=== PATIENT | male | born 1975 | race Caucasian/White ===

== ENCOUNTER → 2018-02-11 09:21 | Outpatient (CLI) | payer OTHER, SELFPAY ==
[2018-02-11 09:58] LABS: Add Manual Diff / Slide Review NO; Basophils Percent Auto 0.7 % (0-2); Eosinophils Percent Auto 6.1 % (2-4); Hematocrit 46.6 % (41-53); Hemoglobin 16.2 g/dL (13.5-17.5); Lymphocytes Percent Auto 30.1 % (25-40); Mean Corpuscular HGB Conc 34.7 % (30-36); Mean Corpuscular Hemoglobin 29.6 PG (26-34); Mean Corpuscular Volume 85.1 fL (80-100); Monocytes Percent Auto 8.7 % (3-14); Neutrophils Absolute Auto 4100 /uL (3000-5900); Neutrophils Percent Auto 54.4 % (50-75); Platelet Count 276 X10^3/uL (150-400); Red Blood Cell Count 5.47 X10^6/uL (4.5-5.9); Red Cell Distribution Width 13.6 % (11.6-14.8); White Blood Cell Count 7.6 X10^3/uL (4.5-11.0)
[2018-02-11 10:54] LABS: Alanine Aminotransferase 41 IU/L (21-72); Albumin 4.4 g/dL (3.5-5.0); Albumin Globulin Ratio 1.5 (1.0-2.8); Alkaline Phosphatase 44 U/L (38-126); Aspartate Aminotransferase 32 IU/L (17-59); BUN Creatinine Ratio 16.7 (6-22); Bilirubin Total 0.6 mg/dL (0.2-1.3); Blood Urea Nitrogen 15 mg/dL (9-20); Calcium 9.2 mg/dL (8.4-10.2); Carbon Dioxide 30 mmol/L (22-32); Chloride 105 mmol/L (98-107); Cholesterol 140 mg/dL (140-199); Estimated Glomerular Filt Rate > 60.0 mL/min (>60); Glucose 106 mg/dL (70-100); HDL Cholesterol 38 mg/dL (40-60); HEMOLYSIS < 15 (0-50); LDL Cholesterol Calculated 81 mg/dL (<100); Potassium 4.7 mmol/L (3.4-5.1); Sodium 146 mmol/L (137-145); Total Protein 7.4 g/dL (6.3-8.2); Triglycerides 103 mg/dL (35-150)
[2018-02-11 11:30] LABS: Appearance Urine UA CLEAR; Bilirubin Urine UA NEGATIVE (NEGATIVE); Color Urine UA YELLOW; Glucose Urine UA NEGATIVE (Normal); Ketones Urine UA NEGATIVE (NEGATIVE); Leukocyte Esterase Urine UA NEGATIVE (NEGATIVE); Nitrite Urine UA Negative (Negative); Occult Blood Urine UA 1+ (Negative); Protein Urine UA NEGATIVE (Negative); Urobilinogen Urine UA 0.2 E.U./dL (0.2); pH Urine UA 6.5 (4.5-8.0)
== END ==
PROVIDERS: Visit Provider Family Medicine
DX: Z00.00 Encounter for general adult medical examination without abnormal findings (principal)
CPT/HCPCS: 36415; 80053; 80061; 81003; 84443; 85025

== ENCOUNTER → 2018-03-17 12:42 | Outpatient (CLI) | payer OTHER, SELFPAY ==
--- NOTE | 2018-03-17 12:44 | DI.CT.S_ITS ---
PROCEDURE: CT ABDOMEN PELVIS WO CON INDICATIONS: diffuse abdominal pain and bleeding from umbilicus TECHNIQUE: Noncontrast 5 mm thick sections acquired from the diaphragms to the symphysis. 5 mm coronal and sagittal reformats were then performed. For radiation dose reduction, the following was used: automated exposure control, adjustment of mA and/or kV according to patient size. COMPARISON: None. FINDINGS: Image quality: Excellent. ABDOMEN: Lung bases: Lung bases are clear. Heart size is normal. Small hiatal hernia. Solid organs: Liver is normal in size. Gallbladder is normal. Pancreas is normal in contours. Spleen is normal in size. No adrenal nodules. Kidneys are normal in size, without hydronephrosis or nephrolithiasis. Peritoneum and bowel: Unenhanced bowel loops demonstrate normal wall thickness and caliber. Scattered colonic diverticula. No evidence for acute diverticulitis. No free fluid or air. Nodes and vessels: No retroperitoneal or mesenteric adenopathy by size criteria. Aorta and inferior vena cava are normal in caliber. Miscellaneous: Tiny fat-containing umbilical hernia is noted. PELVIS: Genitourinary: Bladder wall thickness is normal. Miscellaneous: No inguinal hernias or adenopathy. Bones: No suspicious bony lesions. No vertebral body compression fractures. IMPRESSION: 1. A small fat containing umbilical hernia is present. No CT findings to explain periumbilical bleeding. 2. Diverticulosis without active diverticulitis. 3. Small hiatal hernia. Dictated by: Jenny Leggett M.D. on 03/17/2018 at 14:46 Approved by: Jenny Leggett M.D. on 03/17/2018 at 14:52
== END ==
PROVIDERS: PCP Family Medicine; Visit Provider Physician Assistant
DX: R10.84 Generalized abdominal pain (principal); K42.9 Umbilical hernia without obstruction or gangrene; K44.9 Diaphragmatic hernia without obstruction or gangrene; R19.8 Other specified symptoms and signs involving the digestive system and abdomen; K57.90 Diverticulosis of intestine, part unspecified, without perforation or abscess without bleeding
CPT/HCPCS: 74176

== ENCOUNTER 2019-01-02 13:28 | Emergency (ER) | payer OTHER, SELFPAY ==
[2019-01-02 13:30] VITALS: BP 139/98; PULSE 82; RESP 18; TEMP 37; O2SAT 99; BMI 33.2
--- NOTE | 2019-01-02 13:40 | DI.RAD.S_ITS ---
PROCEDURE: XR CHEST 1V INDICATIONS: chest pain TECHNIQUE: One view of the chest was acquired. COMPARISON: None. FINDINGS: Surgical changes and devices: None. Lungs and pleura: Lungs are clear. No pleural effusions or pneumothorax. Mediastinum: Mediastinal contours appear normal. Heart size is normal. Bones and chest wall: No suspicious bony lesions. Overlying soft tissues appear unremarkable. IMPRESSION: Normal for age, source of current chest pain symptoms is not seen. Dictated by: Rex Sanderson M.D. on 01/02/2019 at 14:08 Approved by: Rex Sanderson M.D. on 01/02/2019 at 14:08
[2019-01-02 14:04] LABS: Add Manual Diff / Slide Review NO; Basophils Absolute Auto 100 /uL (0-100); Eosinophils Absolute Auto 300 /uL (0-450); Hemoglobin 16.2 g/dL (13.5-17.5); Lymphocytes Absolute Auto 2900 /uL (1100-4500); Lymphocytes Percent Auto 34.4 % (25-40); Mean Corpuscular HGB Conc 35.3 % (30-36); Mean Corpuscular Hemoglobin 29.5 PG (26-34); Mean Corpuscular Volume 83.6 fL (80-100); Monocytes Absolute Auto 1000 /uL (0-900); Monocytes Percent Auto 11.6 % (3-14); Neutrophils Absolute Auto 4200 /uL (1500-7000); Platelet Count 273 X10^3/uL (150-400); Red Cell Distribution Width 13.3 % (11.6-14.8); White Blood Cell Count 8.6 X10^3/uL (4.5-11.0)
[2019-01-02 14:11] LABS: Prothrombin Time 11.4 SECONDS (10.1-12.7)
[2019-01-02 14:14] LABS: PTT Partial Thromboplastin Tim 32 SECONDS (26.4-36.2)
[2019-01-02 14:15] LABS: Alanine Aminotransferase 42 IU/L (21-72); Albumin 4.4 g/dL (3.5-5.0); Albumin Globulin Ratio 1.4 (1.0-2.8); Alkaline Phosphatase 51 U/L (38-126); Aspartate Aminotransferase 34 IU/L (17-59); BUN Creatinine Ratio 22.5 (6-22); Bilirubin Total 0.4 mg/dL (0.2-1.3); Blood Urea Nitrogen 18 mg/dL (9-20); Calcium 9.5 mg/dL (8.4-10.2); Carbon Dioxide 27 mmol/L (22-32); Chloride 102 mmol/L (98-107); Creatine Kinase 135 U/L (55-170); Estimated Glomerular Filt Rate > 60.0 mL/min (>60); Globulin 3.2 g/dL (1.7-4.1); Glucose 86 mg/dL (70-100); HEMOLYSIS 19 (0-50); Lipase 101 U/L (23-300); Potassium 4.2 mmol/L (3.4-5.1); Sodium 139 mmol/L (137-145); Total Protein 7.6 g/dL (6.3-8.2)
[2019-01-02 14:26] LABS: Troponin I < 0.012 ng/mL (0.01-0.034)
[2019-01-02 14:30] LABS: CKMB % Relative Index 0.7 % (1.5-5.0); Creatine Kinase MB 0.89 ng/mL (<2.37)
[2019-01-02 14:51] LABS: Thyroid Stimulating Hormone 2.07 uIU/mL (0.47-4.68)
--- NOTE | 2019-01-02 15:25 | ED_ITS ---
HPI - Chest Pain General Chief Complaint: Chest Pain Stated Complaint: Some heart thing, pain on lt side, and lt trap Time Seen by Provider: 01/02/19 13:44 Source: patient Mode of arrival: ambulatory Limitations: no limitations History of Present Illness HPI narrative: Patient is a 43-year-old male who presents with heart palpitations, he states that he been coming more frequently over the past few weeks. He knows that we turned his neck once he heard a crack and felt some heart palpitations. He had pain in his trapezius muscle is that he has noticed as well. He has a sharp pain or discomfort in the left part of his chest. It lasts for less than a 2nd. Today he felt dizzy and lightheaded very briefly when he felt his heart beating fast. He has not previously felt dizzy. He has not passed out. He does drink caffeine at least 1-2 cups of coffee about 3 water down diet Mountain Dews daily. No alcohol use no marijuana use. MD complaint: other (Palpitation) Duration: progressively worsening Related Data Home Medications Medication Instructions Recorded Confirmed aspirin 81 mg tablet,delayed 81 mg PO DAILY 02/19/18 03/15/18 release cyanocobalamin (vit B-12) 500 mcg 500 mcg PO DAILY 02/19/18 03/15/18 tablet multivitamin tablet 1 tab PO DAILY 02/19/18 03/15/18 Allergies Allergy/AdvReac Type Severity Reaction Status Date / Time No Known Drug Allergies Allergy Verified 03/15/18 18:30 Review of Systems Review of Systems GENERAL: Denies chills, fatigue, malaise, fever, sweats, travel HEENT: Denies sinus pain, ear pain, sore throat, difficulty swallowing, neck pain RESPIRATORY: Denies dyspnea, cough, wheezing, hemoptysis, sputum. CARDIOVASCULAR: See HPI GASTROINTESTINAL: Denies nausea, vomiting, abdominal pain, diarrhea, constipation, melena. : Denies dysuria, frequency, incontinence, hematuria, urinary retention, flank pain. MUSCULOSKELETAL: Denies weakness, joint pain, or bony pain SKIN: No rash, no erythema, no pruritus NEUROLOGIC: Denies weakness, dizziness, headache, numbness, change in speech, confusion PSYCHIATRIC: No concerning psychosocial issues. 12 point review of systems is negative except for those stated above and HPI [facility] Medical History GERD (gastroesophageal reflux disease) (Chronic 2012) Shoulder pain (Resolved 2017) Surgical History Hx of hernia repair (Resolved 1987) Family History (Updated 01/27/18 @ 09:04 by Nory Amezcua LPN) Grandfather Diabetes mellitus Social History Smoking Status: Former smoker Tobacco: How many years used: 20 second hand exposure: No alcohol intake: never substance use type: marijuana Family History Grandfather Diabetes mellitus Social History Smoking Status: Former smoker Tobacco: How many years used: 20 second hand exposure: No alcohol intake: never substance use type: marijuana Exam Initial Vital Signs Initial Vital Signs: Vital Signs Temperature 98.6 F 01/02/19 13:30 Pulse Rate 82 01/02/19 13:30 Respiratory Rate 18 01/02/19 13:30 Blood Pressure 139/98 H 01/02/19 13:30 Pulse Oximetry 99 01/02/19 13:30 GENERAL: Well-appearing, well-nourished and in no acute distress. HEENT: Head atraumatic,EOMI, pupils reactive, face symmetric, moist mucous membranes CARDIOVASCULAR: Regular rate and rhythm without murmurs, rubs or gallops. RESPIRATORY: Breath sounds equal bilaterally, no wheezes rales or rhonchi. ABDOMEN: Soft, nontender. Normoactive bowel sounds all 4 quadrants. No guarding or rebound. EXTREMITIES: Normal range of motion, no clubbing or edema. Neurovascularly intact NEUROLOGICAL: Alert and oriented x4.Normal gait and speech. Cranial nerves II through XII grossly intact. SKIN: Warm, dry, no laceration, no petechiae, no rashes or lesions. Course Orders Ordered: ED Orders 01/02/19 13:40 XR chest 1V Stat EKG-12 Lead Stat 01/02/19 13:53 Complete Blood Count AUTO DIFF Stat Comprehensive Metabolic Panel Stat Lipase Stat Partial Thromboplastin Time Stat Prothrombin Time INR Stat Thyroid Stimulating Hormone Stat Troponin & CK Cardiac Panel Stat Vital Signs - 8 hr 01/02/19 13:30 01/02/19 15:36 Temperature 98.6 F Pulse Rate 82 79 Respiratory Rate 18 20 Blood Pressure 139/98 H 125/83 Pulse Oximetry 99 97 MDM - Chest Pain Lab Data Attestation: I reviewed the patient's lab results. Result diagrams: 01/02/19 13:53 01/02/19 13:53 Lab Results 01/02/19 01/02/19 01/02/19 Range/Units 13:53 13:53 13:53 WBC 8.6 (4.5-11.0) X10^3/uL RBC 5.50 (4.5-5.9) X10^6/uL Hgb 16.2 (13.5-17.5) g/dL Hct 46.0 (41-53) % MCV 83.6 (80-100) fL MCH 29.5 (26-34) PG MCHC 35.3 (30-36) % RDW 13.3 (11.6-14.8) % Plt Count 273 (150-400) X10^3/uL Neut % (Auto) 49.0 L (50-75) % Lymph % (Auto) 34.4 (25-40) % [place] % (Auto) 11.6 (3-14) % Eos % (Auto) 4.0 (2-4) % Baso % (Auto) 1.0 (0-2) % Neut # (Auto) 4200 (4229-0258) /uL Lymph # (Auto) 2900 (1319-1432) /uL [place] # (Auto) 1000 H (0-900) /uL Eos # (Auto) 300 (0-450) /uL Baso # (Auto) 100 (0-100) /uL PT 11.4 (10.1-12.7) SECONDS INR 1.0 (0.9-1.3) APTT 32 (26.4-36.2) SECONDS Sodium 139 (137-145) mmol/L Potassium 4.2 (3.4-5.1) mmol/L Chloride 102 (98-107) mmol/L Carbon Dioxide 27 (22-32) mmol/L BUN 18 (9-20) mg/dL Creatinine 0.80 (0.66-1.25) mg/dL Estimated GFR > 60.0 (>60) mL/min BUN/Creatinine Ratio 22.5 H (6-22) Glucose 86 (70-100) mg/dL Calcium 9.5 (8.4-10.2) mg/dL Total Bilirubin 0.4 (0.2-1.3) mg/dL AST 34 (17-59) IU/L ALT 42 (21-72) IU/L Alkaline Phosphatase 51 (38-126) U/L Total Creatine Kinase 135 (55-170) U/L CK-MB (CK-2) 0.89 (<2.37) ng/mL CK-MB (CK-2) Rel Index 0.7 L (1.5-5.0) % Troponin I < 0.012 (0.01-0.034) ng/mL Total Protein 7.6 (6.3-8.2) g/dL Albumin 4.4 (3.5-5.0) g/dL Globulin 3.2 (1.7-4.1) g/dL Albumin/Globulin Ratio 1.4 (1.0-2.8) Lipase 101 (23-300) U/L TSH (0.47-4.68) uIU/mL 01/02/19 Range/Units 13:53 WBC (4.5-11.0) X10^3/uL RBC (4.5-5.9) X10^6/uL Hgb (13.5-17.5) g/dL Hct (41-53) % MCV (80-100) fL MCH (26-34) PG MCHC (30-36) % RDW (11.6-14.8) % Plt Count (150-400) X10^3/uL Neut % (Auto) (50-75) % Lymph % (Auto) (25-40) % [place] % (Auto) (3-14) % Eos % (Auto) (2-4) % Baso % (Auto) (0-2) % Neut # (Auto) (8490-9472) /uL Lymph # (Auto) (4416-9790) /uL [place] # (Auto) (0-900) /uL Eos # (Auto) (0-450) /uL Baso # (Auto) (0-100) /uL PT (10.1-12.7) SECONDS INR (0.9-1.3) APTT (26.4-36.2) SECONDS Sodium (137-145) mmol/L Potassium (3.4-5.1) mmol/L Chloride (98-107) mmol/L Carbon Dioxide (22-32) mmol/L BUN (9-20) mg/dL Creatinine (0.66-1.25) mg/dL Estimated GFR (>60) mL/min BUN/Creatinine Ratio (6-22) Glucose (70-100) mg/dL Calcium (8.4-10.2) mg/dL Total Bilirubin (0.2-1.3) mg/dL AST (17-59) IU/L ALT (21-72) IU/L Alkaline Phosphatase (38-126) U/L Total Creatine Kinase (55-170) U/L CK-MB (CK-2) (<2.37) ng/mL CK-MB (CK-2) Rel Index (1.5-5.0) % Troponin I (0.01-0.034) ng/mL Total Protein (6.3-8.2) g/dL Albumin (3.5-5.0) g/dL Globulin (1.7-4.1) g/dL Albumin/Globulin Ratio (1.0-2.8) Lipase (23-300) U/L TSH 2.07 (0.47-4.68) uIU/mL Imaging Data Chest x-ray: Radiologist's impression: PROCEDURE: XR CHEST 1V INDICATIONS: chest pain TECHNIQUE: One view of the chest was acquired. COMPARISON: None. FINDINGS: Surgical changes and devices: None. Lungs and pleura: Lungs are clear. No pleural effusions or pneumothorax. Mediastinum: Mediastinal contours appear normal. Heart size is normal. Bones and chest wall: No suspicious bony lesions. Overlying soft tissues appear unremarkable. IMPRESSION: Normal for age, source of current chest pain symptoms is not seen. Dictated by: Rex Sanderson M.D. on 01/02/2019 at 14:08 ECG Data Attestation: I personally reviewed and interpreted this ECG as follows: Prior ECG tracings: not available for review Interpretation: Normal sinus rhythm rate 78 p.r. interval [address] changes QTC 361 no PVCs no PACs MDM Narrative Medical decision making narrative: Patient has been on the monitor his entire ER visit. No PVCs no PACs. TSH is within normal limits no significant alcohol or caffeine. At this time I recommend outpatient monitoring and Holter monitor. Discharge Plan Departure Patient Disposition: Home Clinical Impression: Heart palpitations Discharge Date/Time: 01/02/19 15:37 Interventions: ED Discharge Assessment Last Done: 01/02/19 15:36 Instructions: Arrhythmias, DI for Palpitations Activity Restrictions/Additional Instructions: *You have been diagnosed with heart palpitations *What to do: At this time I recommend you have a Holter monitor which can be arranged with her primary care physician. This will monitor your heart rate for up to 72 hours. At this time I do recommend you decrease her caffeine intake. Increase her water intake *Continue to take medications as directed *Follow up with your primary care provider in 2-3 days *Return to ER if you should have increasing heart palpitations persistent dizziness, passing or any new, worsening or concerning symptoms Prescriptions: No Action multivitamin tablet 1 tab PO DAILY RF: 0 cyanocobalamin (vitamin B-12) [Vitamin B-12] 500 mcg tablet 500 mcg PO DAILY RF: 0 aspirin [Adult Low Dose Aspirin] 81 mg tablet,delayed release (DR/EC) 81 mg PO DAILY RF: 0 Referrals: Kathy Badillo DO [Primary Care Provider] -
[2019-01-02 15:36] VITALS: BP 125/83; PULSE 79; RESP 20; O2SAT 97
== END 2019-01-02 15:37 | disposition home or self-care (01) ==
PROVIDERS: Emergency Provider Emergency Medicine; PCP Family Medicine
DX: R00.2 Palpitations (principal)
CPT/HCPCS: 36591; 71045; 80053; 82550; 82553; 83690; 84443; 84484; 85025; 85610; 85730; 93005; 99283; 99285

== ENCOUNTER → 2019-01-06 14:15 | Outpatient (CLI) | payer OTHER, SELFPAY ==
--- NOTE | 2019-01-21 15:11 | PM.CARDMON.1 ---
Extra Hand Report Referral & Results Date Patient Seen: 01/06/19 Requesting provider: Alexus Thomas Indication: Palpitations Duration of monitoring (days): 3 Diary information: There is 1 patient triggered event associated with sinus rhythm and no patient diary entries Data: Minimum heart rate identified was 49 beats per minute at 07:20 on 01/08/2019 Maximum overall heart rate was 131 beats per minute at 19:43 on 01/08/2019 The computer identified 1 run of atrial fibrillation that lasted for 1 minutes 12 seconds but upon closer inspection appears to be merely frequent supraventricular ectopic beats Less than 1% of identified beats or either ventricular supraventricular ectopic in origin 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
== END ==
PROVIDERS: PCP Family Medicine; Visit Provider Hospitalist
DX: R00.2 Palpitations (principal)
CPT/HCPCS: 0296T; 0298T

== ENCOUNTER → 2020-09-02 09:45 | Outpatient (CLI) | payer OTHER, SELFPAY ==
[2020-09-02 10:06] LABS: COVID19 -Nasal RAPID Negative (Negative)
== END ==
PROVIDERS: PCP Family Medicine; Visit Provider Physician Assistant
DX: Z20.822 Contact with and (suspected) exposure to COVID-19 (principal)
CPT/HCPCS: 87635